=== PATIENT | female | born 1985 | race Hispanic/Latino ===

== ENCOUNTER 2016-08-08 08:03 | Emergency (ER) | payer MEDICAID, OTHER ==
[2016-08-08] MEDS ORDERED: GI COCKTAIL 50ML BTL(HYOSCYAMINE/MAALOX/LIDOCAINE VISCOUS)(1:3:1) As Ordered ONE (09:08)
[2016-08-08 09:10] LABS: BASO % 0.2 % (0.0-1.0); EOS # 0.1 K/mm3 (0.0-0.50); EOS % 1.4 % (0.0-3.0); LARGE UNSTAINED CELL # 0.1 K/mm3 (0.0-0.4); LARGE UNSTAINED CELL % 1.4 % (0.0-4.0); LYMPH # 1.1 K/mm3 (1.5-4.5); LYMPH % 12.7 % (24.0-44.0); MEAN CORPUSCULAR HEMOGLOBIN 23.8 pg (27.0-33.0); MEAN CORPUSCULAR HGB CONC 31.4 g/dl (32.0-36.5); MEAN CORPUSCULAR VOLUME 75.8 fl (80.0-96.0); MONO # 0.2 K/mm3 (0.0-0.8); MONO % 2.7 % (0.0-5.0); NEUTROPHILS # 7.3 K/mm3 (1.8-7.7); NEUTROPHILS % 81.6 % (36.0-66.0); PLATELET COUNT, AUTOMATED 312 k/mm3 (150-450); WHITE BLOOD COUNT 8.9 K/mm3 (4.0-10.0)
[2016-08-08 09:29] LABS: BLOOD UREA NITROGEN 8 MG/DL (7-18); CREATININE FOR GFR 0.69 MG/DL (0.55-1.02); GLUCOSE, FASTING 84 MG/DL (70-105)
[2016-08-08 09:30] LABS: ALBUMIN 3.7 GM/DL (3.2-5.2); ALBUMIN/GLOBULIN RATIO 0.95 (1.00-1.93); ALKALINE PHOSPHATASE 90 U/L (45-117); ALT/SGPT 15 U/L (12-78); AMYLASE 63 U/L (25-115); ANION GAP 9 MEQ/L (8-16); AST/SGOT 10 U/L (15-37); BILIRUBIN,DIRECT 0.2 MG/DL (0.0-0.2); BILIRUBIN,TOTAL 0.6 MG/DL (0.2-1.0); CALCIUM LEVEL 8.7 MG/DL (8.5-10.1); CARBON DIOXIDE LEVEL 23 MEQ/L (21-32); CHLORIDE LEVEL 110 MEQ/L (98-107); GLOMERULAR FILTRATION RATE > 60.0 (>60); POTASSIUM SERUM 3.8 MEQ/L (3.5-5.1); SODIUM LEVEL 142 MEQ/L (136-145); TOTAL PROTEIN 7.6 GM/DL (6.4-8.2)
--- NOTE | 2016-08-08 09:51 | REP ---
Supine KUB 08/08/2016. Indication: Constipation Comparison: Abdominal series 06/23/2011 Findings: Moderate diffuse stool is seen within the right and transverse colon, to the level of the splenic flexure. The left colon is under distended. There is small amount of stool in the rectosigmoid colon. Bones and soft tissues are within normal limits. There are no abnormal soft tissue calcifications. There is extraneous clothing artifact projected over the hips. Impression: Moderate retained colonic stool with some sparing in the left colon. Bowel gas pattern is otherwise nonspecific Signed by Rika Richardson MD 08/08/2016 09:42 A
--- NOTE | 2016-08-08 10:13 | EDDOCDS ---
Nurse's Notes [facility] Name: Deanna Cantu Age: 30 yrs Sex: Female : 1985 Arrival Date: 08/08/2016 Time: 08:03 Bed I1 / M1 Private MD: Diagnosis: Constipation Presentation: 08/08 08:20 Presenting complaint: Patient states: Upper abdominal pain since 9pm yesterday, no dwg vomiting. Risk factors: the patient reports no vaginal bleeding. Adult Sepsis Screening: The patient does not have new or worsening altered mentation. Patient's respiratory rate is less than 22. Systolic blood pressure is greater than 100. Patient has a qSOFA score of 0- Negative Sepsis Screen. Suicide/Homicide risk assessment- the patient denies having any suicidal and/or homicidal ideations and does not present with any other emotional, behavioral or mental health complaints. Status: Patient is not a senior manager creative services or dependent. Transition of care: patient was not received from another setting of care. 08:20 Acuity: TAVO Level 3 dwg 08:20 Method Of Arrival: Walkin/Carried/Asstd dwg Triage Assessment: 08:23 General: Appears in no apparent distress. Pain: Pain currently is 9 out of 10 on a pain dwg scale. Pt Declines HIV testing. 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 none - PMHx: none; - PSHx: none; - Social history: Smoking status: Patient states was never smoker of tobacco. No barriers to communication noted. - Family history: Not pertinent. - : The pt / caregiver states he / she is not on anticoagulants. Home medication list is obtained from the patient. - Exposure Risk Screening:: None identified. Screenin:57 Screening information is obtained from the patient. Primary language is Romanian. Fall jam1 risk: No risks identified. Assistance ADL's: requires no assistance with activities of daily living. Abuse/DV Screen: The patient / caregiver reports he/she is: not in a situation that causes fear, pain or injury. Nutritional screening: No deficits noted. Exposure Risk Screening: None identified. Advance Directives: Currently, there is no health care proxy. There is no active DNR order. There is no living will. There is no Power of Electromedical Equipment Repairer. Advance directive information has not previously been placed in an [facility] medical record. Further advance directive information. home support is adequate. Assessment: 09:50 Reassessment: Patient states abdominal discomfort not any better - tongue feels numb. kcs Texting.. General: Appears comfortable, well developed, well nourished, well groomed, Behavior is cooperative, pleasant. Neurological: Level of Consciousness is awake, alert. Respiratory: Airway is patent Respiratory effort is even, unlabored, Respiratory pattern is regular, symmetrical. GI: Abdomen is obese, Bowel sounds present X 4 quads. Abd is soft and non tender. Derm: Skin is intact, is healthy with good turgor, Skin is dry, Skin is brown. 10:08 Reassessment: Patient states feeling better. General: Appears comfortable, well kcs developed, well nourished, well groomed, Behavior is cooperative, pleasant. Neurological: Level of Consciousness is awake, alert. Respiratory: Airway is patent Respiratory effort is even, unlabored, Respiratory pattern is regular, symmetrical. GI: Denies nausea. Derm: Skin is intact, is healthy with good turgor, Skin is dry, Skin is brown. Vital Signs: 08:23 BP 124 / 80; Pulse 72; Resp 16; Temp 98.1(T); Pulse Ox 100% on R/A; Weight 81.65 kg; g Height 5 ft. 3 in. (160.02 cm); Pain 9/10; 09:58 BP 137 / 64; Pulse 71; Resp 18; Temp 98.6; Pulse Ox 100% ; Pain 6/10; jam1 08:23 Body Mass Index 31.89 (81.65 kg, 160.02 cm) [facility] Vitals: 08:23 Log In Time: August 08, 2016 at 08:02. [facility] ED Course: 08:04 Patient visited by Jl Leone. mm15 08:04 Patient moved to Waiting mm15 08:21 Triage Initiated dwg 08:25 Patient moved to I1 / M1 dwg 08:26 Des Bess PA-C is PHCP. ar2 08:26 Lee Parada MD is Attending Physician. ar2 08:27 Patient visited by Des Bess PA-C. ar2 08:57 Pt greeted and oriented to ED. Patient advised of names of staff involved in care, jam1 location of call rivas, wait times and NPO status. Patient has correct armband on for positive identification. Bed in low position. Call light in reach. Side rails up X 1. Door closed. 09:02 Liver Profile Sent. kcs 09:02 Lipase Sent. kcs 09:02 CBC with Diff Sent. kcs 09:02 Basic Metabolic Profile Sent. kcs 09:02 Amylase Sent. kcs 09:09 Patient moved to Radiology dsf 09:20 Patient moved to I1 / M1 gg 09:21 [facility] Payment Agreement was scanned into [employer] and attached to record. mm15 09:52 Patient visited by Portia Patel RN. kcs 09:55 Patient name changed from Deanna\S\\S\Cantu\S\ to Deanna\S\L\S\Cantu. EDMS 10:08 The patient / caregiver is instructed regarding the plan of care and ED course. kcs 10:08 No IV's were initiated during this patient's visit. No procedures done that require kcs assistance. Administered Medications: 09:09 Drug: GI Cocktail - (Alum-Mag Hydroxide-Simeth Suspension 225 mg-200 mg-25 mg/5 mL 30 dsf ml, Lidocaine Liquid 2 % 10 ml, Hyoscyamine Liquid 10 ml) Route: PO; Point of Care Testing: Urine : 08:56 hCG Reading: Negative; jam1 Ranges: Order Results: Lab Order: Amylase; SPEC'M 08/08/16 09:00 Test: AMYLASE; Value: 63; Range: 25-115; Units: U/L; Status: F Lab Order: Basic Metabolic Profile; SPEC'M 08/08/16 09:00 Test: GLUCOSE, FASTING; Value: 84; Range: 70-105; Units: MG/DL; Status: F Test: BLOOD UREA NITROGEN; Value: 8; Range: 7-18; Units: MG/DL; Status: F Test: CREATININE FOR GFR; Value: 0.69; Range: 0.55-1.02; Units: MG/DL; Status: F Test: GLOMERULAR FILTRATION RATE; Value: > 60.0; Range: >60; Status: F Test: SODIUM LEVEL; Value: 142; Range: 136-145; Units: MEQ/L; Status: F Test: POTASSIUM SERUM; Value: 3.8; Range: 3.5-5.1; Units: MEQ/L; Status: F Test: CHLORIDE LEVEL; Value: 110; Range: 98-107; Abnormal: Above high normal; Units: MEQ/L; Status: F Test: CARBON DIOXIDE LEVEL; Value: 23; Range: 21-32; Units: MEQ/L; Status: F Test: ANION GAP; Value: 9; Range: 8-16; Units: MEQ/L; Status: F Test: CALCIUM LEVEL; Value: 8.7; Range: 8.5-10.1; Units: MG/DL; Status: F Test Note: ; Units are mL/min/1.73 m2 Chronic Kidney Disease Staging per NKF: Stage I & II GFR >=60 Normal to Mildly Decreased Stage III GFR 30-59 Moderately Decreased Stage IV GFR 15-29 Severely Decreased Stage V GFR <15 Very Little GFR Left ESRD GFR <15 on DRAWING INSTRUCTOR Lab Order: CBC with Diff; SPEC'M 08/08/16 09:00 Test: WHITE BLOOD COUNT; Value: 8.9; Range: 4.0-10.0; Units: K/mm3; Status: F Test: RED BLOOD COUNT; Value: 4.56; Range: 4.00-5.40; Units: M/mm3; Status: F Test: HEMOGLOBIN; Value: 10.9; Range: 12.0-16.0; Abnormal: Below low normal; Units: g/dl; Status: F Test: HEMATOCRIT; Value: 34.6; Range: 36.0-47.0; Abnormal: Below low normal; Units: %; Status: F Test: MEAN CORPUSCULAR VOLUME; Value: 75.8; Range: 80.0-96.0; Abnormal: Below low normal; Units: fl; Status: F Test: MEAN CORPUSCULAR HEMOGLOBIN; Value: 23.8; Range: 27.0-33.0; Abnormal: Below low normal; Units: pg; Status: F Test: MEAN CORPUSCULAR HGB CONC; Value: 31.4; Range: 32.0-36.5; Abnormal: Below low normal; Units: g/dl; Status: F Test: RED CELL DISTRIBUTION WIDTH; Value: 16.0; Range: 11.5-14.5; Abnormal: Above high normal; Units: %; Status: F Test: PLATELET COUNT, AUTOMATED; Value: 312; Range: 150-450; Units: k/mm3; Status: F Test: NEUTROPHILS %; Value: 81.6; Range: 36.0-66.0; Abnormal: Above high normal; Units: %; Status: F Test: LYMPH %; Value: 12.7; Range: 24.0-44.0; Abnormal: Below low normal; Units: %; Status: F Test: MONO %; Value: 2.7; Range: 0.0-5.0; Units: %; Status: F Test: EOS %; Value: 1.4; Range: 0.0-3.0; Units: %; Status: F Test: BASO %; Value: 0.2; Range: 0.0-1.0; Units: %; Status: F Test: LARGE UNSTAINED CELL %; Value: 1.4; Range: 0.0-4.0; Units: %; Status: F Test: NEUTROPHILS #; Value: 7.3; Range: 1.8-7.7; Units: K/mm3; Status: F Test: LYMPH #; Value: 1.1; Range: 1.5-4.5; Abnormal: Below low normal; Units: K/mm3; Status: F Test: MONO #; Value: 0.2; Range: 0.0-0.8; Units: K/mm3; Status: F Test: EOS #; Value: 0.1; Range: 0.0-0.50; Units: K/mm3; Status: F Test: BASO #; Value: 0.0; Range: 0.0-0.2; Units: K/mm3; Status: F Test: LARGE UNSTAINED CELL #; Value: 0.1; Range: 0.0-0.4; Units: K/mm3; Status: F Lab Order: Lipase; SPEC'M 08/08/16 09:00 Test: LIPASE; Value: 168; Range: 73-393; Units: U/L; Status: F Lab Order: Liver Profile; SPEC'M 08/08/16 09:00 Test: AST/SGOT; Value: 10; Range: 15-37; Abnormal: Below low normal; Units: U/L; Status: F Test: ALT/SGPT; Value: 15; Range: 12-78; Units: U/L; Status: F Test: ALKALINE PHOSPHATASE; Value: 90; Range: 45-117; Units: U/L; Status: F Test: BILIRUBIN,TOTAL; Value: 0.6; Range: 0.2-1.0; Units: MG/DL; Status: F Test: BILIRUBIN,DIRECT; Value: 0.2; Range: 0.0-0.2; Units: MG/DL; Status: F Test: TOTAL PROTEIN; Value: 7.6; Range: 6.4-8.2; Units: GM/DL; Status: F Test: ALBUMIN; Value: 3.7; Range: 3.2-5.2; Units: GM/DL; Status: F Test: ALBUMIN/GLOBULIN RATIO; Value: 0.95; Range: 1.00-1.93; Abnormal: Below low normal; Status: F Outcome: 09:57 Discharge ordered by Provider. ar2 10:08 Discharge Assessment: Patient awake, alert and oriented x 3. No cognitive and/or kcs functional deficits noted. Patient verbalized understanding of disposition instructions. Patient awake and alert. patient administered narcotics - no. The following High Risk Discharge criteria are identified: None. Discharged to home ambulatory. Condition: stable. No special radiology studies were completed. Property sent home with patient. 10:13 Patient left the ED. mike Signatures: Dispatcher [employer] Portia Monahan, RN Adelfo Blake RN Keila Peraza, [facility] Mekhi Boswell Aaron, PA-C PAAaron veras2 Dulce Veras RN RN Jl Phelps mm15 Corrections: (The following items were deleted from the chart) :57 09:50 GI: Abdomen is obese, Bowel sounds mike mckeon MTDAlecia
--- NOTE | 2016-08-08 10:13 | EDDOCDS ---
Physician Documentation [facility] Name: Deanna Cantu Age: 30 yrs Sex: Female : 1985 Arrival Date: 08/08/2016 Time: 08:03 Bed I1 / M1 Private MD: Disposition: 08/08/16 09:57 Discharged to Home/Self Care. Impression: Constipation. - Condition is Stable. - Discharge Instructions: Constipation, Adult, High-Fiber Diet. - Prescriptions for Magnesium Citrate Oral Solution - take 1 bottle by ORAL route once daily; 1 bottle. Miralax 17 gram/dose - take 17 gram by ORAL route once daily As needed dilute in 8 ounces of water or juice; 1 bottle. - Medication Reconciliation, Local Pharmacy Hours form. - Follow up: Private Physician; When: As needed; Reason: Recheck today's complaints, Continuance of care. Follow up: Emergency Department; When: As needed; Reason: Fever > 102F, Worsening of conditions. - Problem is new. - Symptoms are unchanged. - Notes: take magnesium citrate today for bowel movement. then use miralax once daily as needed to avoid constipation Historical: - Allergies: no known allergies; - Home Meds: 1. none - PMHx: none; - PSHx: none; - Social history: Smoking status: Patient states was never smoker of tobacco. No barriers to communication noted. - Family history: Not pertinent. - : The pt / caregiver states he / she is not on anticoagulants. Home medication list is obtained from the patient. - Exposure Risk Screening:: None identified. 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 3 in. (160.02 cm); Pain 9/10; 09:58 BP 137 / 64; Pulse 71; Resp 18; Temp 98.6; Pulse Ox 100% ; Pain 6/10; jam1 08:23 Body Mass Index 31.89 (81.65 kg, 160.02 cm) dwg MDM: 08:38 UCG by Nursing ordered. ar2 08:39 Amylase Ordered. EDMS 08:39 Basic Metabolic Profile Ordered. EDMS 08:39 CBC with Diff Ordered. EDMS 08:39 Lipase Ordered. EDMS 08:39 Liver Profile Ordered. EDMS 09:05 GI Cocktail - (Alum-Mag Hydroxide-Simeth 30 ml, Lidocaine 10 ml, Hyoscyamine 10 ml) PO ar2 once; Pre-mixed 50mL unit dose ordered. 09:05 KUB Ordered. EDMS 09:08 Financial registration complete. mm15 09:21 [facility] Payment Agreement was scanned into [employer] and attached to record. mm15 09:50 Basic Metabolic Profile Reviewed. ar2 09:50 CBC with Diff Reviewed. ar2 09:50 Liver Profile Reviewed. ar2 09:50 Amylase Reviewed. ar2 09:50 Lipase Reviewed. ar2 Point of Care Testing: Urine : 08:56 hCG Reading: Negative; jam1 Ranges: Administered Medications: 09:09 Drug: GI Cocktail - (Alum-Mag Hydroxide-Simeth Suspension 225 mg-200 mg-25 mg/5 mL 30 dsf ml, Lidocaine Liquid 2 % 10 ml, Hyoscyamine Liquid 10 ml) Route: PO; Signatures: Dispatcher [employer] EDMS Portia Patel, RN RN kcs Adelfo Arce RN RN dwg Robertshaw, Aaron, PA-C PAAaron ar2 lJ Leone mm15 Dulce Veras RN The chart was reviewed and I authenticate all verbal orders and agree with the evaluation and treatment provided.Attachments: 09:21 [facility] Payment Agreement mm15 MTDD
--- NOTE | 2016-08-10 11:13 | EDDOCDS ---
Nurse's Notes [facility] Name: Deanna Gutierrez Age: 30 yrs Sex: Female : 1985 Arrival Date: 08/08/2016 Time: 08:03 Bed I1 / M1 Private MD: Diagnosis: Constipation Presentation: 08/08 08:20 Presenting complaint: Patient states: Upper abdominal pain since 9pm yesterday, no dwg vomiting. Risk factors: the patient reports no vaginal bleeding. Adult Sepsis Screening: The patient does not have new or worsening altered mentation. Patient's respiratory rate is less than 22. Systolic blood pressure is greater than 100. Patient has a qSOFA score of 0- Negative Sepsis Screen. Suicide/Homicide risk assessment- the patient denies having any suicidal and/or homicidal ideations and does not present with any other emotional, behavioral or mental health complaints. Status: Patient is not a patient services technician or dependent. Transition of care: patient was not received from another setting of care. 08:20 Acuity: TAVO Level 3 dwg 08:20 Method Of Arrival: Walkin/Carried/Asstd dwg Triage Assessment: 08:23 General: Appears in no apparent distress. Pain: Pain currently is 9 out of 10 on a pain dwg scale. Pt Declines HIV testing. 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 none - PMHx: none; - PSHx: none; - Social history: Smoking status: Patient states was never smoker of tobacco. No barriers to communication noted. - Family history: Not pertinent. - : The pt / caregiver states he / she is not on anticoagulants. Home medication list is obtained from the patient. - Exposure Risk Screening:: None identified. Screenin:57 Screening information is obtained from the patient. Primary language is Tongan. Fall jam1 risk: No risks identified. Assistance ADL's: requires no assistance with activities of daily living. Abuse/DV Screen: The patient / caregiver reports he/she is: not in a situation that causes fear, pain or injury. Nutritional screening: No deficits noted. Exposure Risk Screening: None identified. Advance Directives: Currently, there is no health care proxy. There is no active DNR order. There is no living will. There is no Power of Wood Type Finisher. Advance directive information has not previously been placed in an [facility] medical record. Further advance directive information. home support is adequate. Assessment: 09:50 Reassessment: Patient states abdominal discomfort not any better - tongue feels numb. kcs Texting.. General: Appears comfortable, well developed, well nourished, well groomed, Behavior is cooperative, pleasant. Neurological: Level of Consciousness is awake, alert. Respiratory: Airway is patent Respiratory effort is even, unlabored, Respiratory pattern is regular, symmetrical. GI: Abdomen is obese, Bowel sounds present X 4 quads. Abd is soft and non tender. Derm: Skin is intact, is healthy with good turgor, Skin is dry, Skin is brown. 10:08 Reassessment: Patient states feeling better. General: Appears comfortable, well kcs developed, well nourished, well groomed, Behavior is cooperative, pleasant. Neurological: Level of Consciousness is awake, alert. Respiratory: Airway is patent Respiratory effort is even, unlabored, Respiratory pattern is regular, symmetrical. GI: Denies nausea. Derm: Skin is intact, is healthy with good turgor, Skin is dry, Skin is brown. Vital Signs: 08:23 BP 124 / 80; Pulse 72; Resp 16; Temp 98.1(T); Pulse Ox 100% on R/A; Weight 81.65 kg; g Height 5 ft. 3 in. (160.02 cm); Pain 9/10; 09:58 BP 137 / 64; Pulse 71; Resp 18; Temp 98.6; Pulse Ox 100% ; Pain 6/10; jam1 08:23 Body Mass Index 31.89 (81.65 kg, 160.02 cm) [facility] Vitals: 08:23 Log In Time: August 08, 2016 at 08:02. [facility] ED Course: 08:04 Patient visited by Jl Leone. mm15 08:04 Patient moved to Waiting mm15 08:21 Triage Initiated dwg 08:25 Patient moved to I1 / M1 dwg 08:26 Des Bess PA-C is PHCP. ar2 08:26 Lee Parada MD is Attending Physician. ar2 08:27 Patient visited by Des Bess PA-C. ar2 08:57 Pt greeted and oriented to ED. Patient advised of names of staff involved in care, jam1 location of call rivas, wait times and NPO status. Patient has correct armband on for positive identification. Bed in low position. Call light in reach. Side rails up X 1. Door closed. 09:02 Liver Profile Sent. kcs 09:02 Lipase Sent. kcs 09:02 CBC with Diff Sent. kcs 09:02 Basic Metabolic Profile Sent. kcs 09:02 Amylase Sent. kcs 09:09 Patient moved to Radiology dsf 09:20 Patient moved to I1 / M1 gg 09:21 [facility] Payment Agreement was scanned into GLO and attached to record. mm15 09:52 Patient visited by Portia Patel RN. kcs 09:55 Patient name changed from Deanna\S\\S\Cantu\S\ to Deanna\S\L\S\Cantu. EDMS 10:08 The patient / caregiver is instructed regarding the plan of care and ED course. kcs 10:08 No IV's were initiated during this patient's visit. No procedures done that require kcs assistance. 10:18 KUB Returned. EDMS 12:54 T-Sheet-- Draft Copy was scanned into GLO and attached to record. gb 12:55 Radiology Report was scanned into GLO and attached to record. gb 08/09 12:09 Patient name changed from Deanna\S\L\S\Cantu\S\ to Deanna\S\L\S\Pachecobenabe. EDMS Administered Medications: 08/08 09:09 Drug: GI Cocktail - (Alum-Mag Hydroxide-Simeth Suspension 225 mg-200 mg-25 mg/5 mL 30 dsf ml, Lidocaine Liquid 2 % 10 ml, Hyoscyamine Liquid 10 ml) Route: PO; Point of Care Testing: Urine : 08:56 hCG Reading: Negative; jam1 Ranges: Order Results: Lab Order: Amylase; SPEC'M 08/08/16 09:00 Test: AMYLASE; Value: 63; Range: 25-115; Units: U/L; Status: F Lab Order: Basic Metabolic Profile; SPEC'M 08/08/16 09:00 Test: GLUCOSE, FASTING; Value: 84; Range: 70-105; Units: MG/DL; Status: F Test: BLOOD UREA NITROGEN; Value: 8; Range: 7-18; Units: MG/DL; Status: F Test: CREATININE FOR GFR; Value: 0.69; Range: 0.55-1.02; Units: MG/DL; Status: F Test: GLOMERULAR FILTRATION RATE; Value: > 60.0; Range: >60; Status: F Test: SODIUM LEVEL; Value: 142; Range: 136-145; Units: MEQ/L; Status: F Test: POTASSIUM SERUM; Value: 3.8; Range: 3.5-5.1; Units: MEQ/L; Status: F Test: CHLORIDE LEVEL; Value: 110; Range: 98-107; Abnormal: Above high normal; Units: MEQ/L; Status: F Test: CARBON DIOXIDE LEVEL; Value: 23; Range: 21-32; Units: MEQ/L; Status: F Test: ANION GAP; Value: 9; Range: 8-16; Units: MEQ/L; Status: F Test: CALCIUM LEVEL; Value: 8.7; Range: 8.5-10.1; Units: MG/DL; Status: F Test Note: ; Units are mL/min/1.73 m2 Chronic Kidney Disease Staging per NKF: Stage I & II GFR >=60 Normal to Mildly Decreased Stage III GFR 30-59 Moderately Decreased Stage IV GFR 15-29 Severely Decreased Stage V GFR <15 Very Little GFR Left ESRD GFR <15 on AGRICULTURIST Lab Order: CBC with Diff; SPEC'M 08/08/16 09:00 Test: WHITE BLOOD COUNT; Value: 8.9; Range: 4.0-10.0; Units: K/mm3; Status: F Test: RED BLOOD COUNT; Value: 4.56; Range: 4.00-5.40; Units: M/mm3; Status: F Test: HEMOGLOBIN; Value: 10.9; Range: 12.0-16.0; Abnormal: Below low normal; Units: g/dl; Status: F Test: HEMATOCRIT; Value: 34.6; Range: 36.0-47.0; Abnormal: Below low normal; Units: %; Status: F Test: MEAN CORPUSCULAR VOLUME; Value: 75.8; Range: 80.0-96.0; Abnormal: Below low normal; Units: fl; Status: F Test: MEAN CORPUSCULAR HEMOGLOBIN; Value: 23.8; Range: 27.0-33.0; Abnormal: Below low normal; Units: pg; Status: F Test: MEAN CORPUSCULAR HGB CONC; Value: 31.4; Range: 32.0-36.5; Abnormal: Below low normal; Units: g/dl; Status: F Test: RED CELL DISTRIBUTION WIDTH; Value: 16.0; Range: 11.5-14.5; Abnormal: Above high normal; Units: %; Status: F Test: PLATELET COUNT, AUTOMATED; Value: 312; Range: 150-450; Units: k/mm3; Status: F Test: NEUTROPHILS %; Value: 81.6; Range: 36.0-66.0; Abnormal: Above high normal; Units: %; Status: F Test: LYMPH %; Value: 12.7; Range: 24.0-44.0; Abnormal: Below low normal; Units: %; Status: F Test: MONO %; Value: 2.7; Range: 0.0-5.0; Units: %; Status: F Test: EOS %; Value: 1.4; Range: 0.0-3.0; Units: %; Status: F Test: BASO %; Value: 0.2; Range: 0.0-1.0; Units: %; Status: F Test: LARGE UNSTAINED CELL %; Value: 1.4; Range: 0.0-4.0; Units: %; Status: F Test: NEUTROPHILS #; Value: 7.3; Range: 1.8-7.7; Units: K/mm3; Status: F Test: LYMPH #; Value: 1.1; Range: 1.5-4.5; Abnormal: Below low normal; Units: K/mm3; Status: F Test: MONO #; Value: 0.2; Range: 0.0-0.8; Units: K/mm3; Status: F Test: EOS #; Value: 0.1; Range: 0.0-0.50; Units: K/mm3; Status: F Test: BASO #; Value: 0.0; Range: 0.0-0.2; Units: K/mm3; Status: F Test: LARGE UNSTAINED CELL #; Value: 0.1; Range: 0.0-0.4; Units: K/mm3; Status: F Lab Order: Lipase; SPEC'M 08/08/16 09:00 Test: LIPASE; Value: 168; Range: 73-393; Units: U/L; Status: F Lab Order: Liver Profile; SPEC'M 08/08/16 09:00 Test: AST/SGOT; Value: 10; Range: 15-37; Abnormal: Below low normal; Units: U/L; Status: F Test: ALT/SGPT; Value: 15; Range: 12-78; Units: U/L; Status: F Test: ALKALINE PHOSPHATASE; Value: 90; Range: 45-117; Units: U/L; Status: F Test: BILIRUBIN,TOTAL; Value: 0.6; Range: 0.2-1.0; Units: MG/DL; Status: F Test: BILIRUBIN,DIRECT; Value: 0.2; Range: 0.0-0.2; Units: MG/DL; Status: F Test: TOTAL PROTEIN; Value: 7.6; Range: 6.4-8.2; Units: GM/DL; Status: F Test: ALBUMIN; Value: 3.7; Range: 3.2-5.2; Units: GM/DL; Status: F Test: ALBUMIN/GLOBULIN RATIO; Value: 0.95; Range: 1.00-1.93; Abnormal: Below low normal; Status: F Radiology Order: KUB Test: KUB REASON FOR EXAMINATION: constipation; Supine KUB 08/08/2016.; ; Indication: Constipation; ; Comparison: Abdominal series 06/23/2011; ; Findings: Moderate diffuse stool is seen within the right and transverse colon,; to the level of the splenic flexure. The left colon is under distended. There; is small amount of stool in the rectosigmoid colon. Bones and soft tissues are; within normal limits. There are no abnormal soft tissue calcifications. There is; extraneous clothing artifact projected over the hips.; ; Impression:; ; Moderate retained colonic stool with some sparing in the left colon. Bowel gas; pattern is otherwise nonspecific; ; ; Signed by; Rika Richardson MD 08/08/2016 09:42 A; Outcome: 09:57 Discharge ordered by Provider. ar2 10:08 Discharge Assessment: Patient awake, alert and oriented x 3. No cognitive and/or kcs functional deficits noted. Patient verbalized understanding of disposition instructions. Patient awake and alert. patient administered narcotics - no. The following High Risk Discharge criteria are identified: None. Discharged to home ambulatory. Condition: stable. No special radiology studies were completed. Property sent home with patient. 10:13 Patient left the ED. mike Signatures: Dispatcher [employer] EDPortia Riley RN RN kcs Greene, Daniel, RN RN dwg Murphy, Jane, PERSONAL INJURY LAW SPECIALIST PERSONAL INJURY LAW SPECIALIST jam1 Mary Bullock, Reg Reg gb Mekhi Hernandez Aaron, PA-C PA-C ar2 Dulce Veras RN RN Jl Phelps mm15 Corrections: (The following items were deleted from the chart) 09:57 09:50 GI: Abdomen is obese, Bowel sounds mike mckeon Chart Complete MTDD
--- NOTE | 2016-08-10 11:13 | EDDOCDS ---
Physician Documentation [facility] Name: Deanna Gutierrez Age: 30 yrs Sex: Female : 1985 Arrival Date: 08/08/2016 Time: 08:03 Bed I1 / M1 Private MD: Disposition: 08/08/16 09:57 Discharged to Home/Self Care. Impression: Constipation. - Condition is Stable. - Discharge Instructions: Constipation, Adult, High-Fiber Diet. - Prescriptions for Magnesium Citrate Oral Solution - take 1 bottle by ORAL route once daily; 1 bottle. Miralax 17 gram/dose - take 17 gram by ORAL route once daily As needed dilute in 8 ounces of water or juice; 1 bottle. - Medication Reconciliation, Local Pharmacy Hours form. - Follow up: Private Physician; When: As needed; Reason: Recheck today's complaints, Continuance of care. Follow up: Emergency Department; When: As needed; Reason: Fever > 102F, Worsening of conditions. - Problem is new. - Symptoms are unchanged. - Notes: take magnesium citrate today for bowel movement. then use miralax once daily as needed to avoid constipation Historical: - Allergies: no known allergies; - Home Meds: 1. none - PMHx: none; - PSHx: none; - Social history: Smoking status: Patient states was never smoker of tobacco. No barriers to communication noted. - Family history: Not pertinent. - : The pt / caregiver states he / she is not on anticoagulants. Home medication list is obtained from the patient. - Exposure Risk Screening:: None identified. 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 3 in. (160.02 cm); Pain 9/10; 09:58 BP 137 / 64; Pulse 71; Resp 18; Temp 98.6; Pulse Ox 100% ; Pain 6/10; jam1 08:23 Body Mass Index 31.89 (81.65 kg, 160.02 cm) dwg MDM: 08:38 UCG by Nursing ordered. ar2 08:39 Amylase Ordered. EDMS 08:39 Basic Metabolic Profile Ordered. EDMS 08:39 CBC with Diff Ordered. EDMS 08:39 Lipase Ordered. EDMS 08:39 Liver Profile Ordered. EDMS 09:05 GI Cocktail - (Alum-Mag Hydroxide-Simeth 30 ml, Lidocaine 10 ml, Hyoscyamine 10 ml) PO ar2 once; Pre-mixed 50mL unit dose ordered. 09:05 KUB Ordered. EDMS 09:08 Financial registration complete. mm15 09:21 [facility] Payment Agreement was scanned into [employer] and attached to record. mm15 09:50 Basic Metabolic Profile Reviewed. ar2 09:50 CBC with Diff Reviewed. ar2 09:50 Liver Profile Reviewed. ar2 09:50 Amylase Reviewed. ar2 09:50 Lipase Reviewed. ar2 12:54 T-Sheet-- Draft Copy was scanned into [employer] and attached to record. gb 12:55 Radiology Report was scanned into [employer] and attached to record. gb Point of Care Testing: Urine : 08:56 hCG Reading: Negative; jam1 Ranges: Administered Medications: 09:09 Drug: GI Cocktail - (Alum-Mag Hydroxide-Simeth Suspension 225 mg-200 mg-25 mg/5 mL 30 dsf ml, Lidocaine Liquid 2 % 10 ml, Hyoscyamine Liquid 10 ml) Route: PO; Signatures: Dispatcher [employer] Portia Monahan, RN RN Adelfo Shaw RN RN dwg Mary Bullock, Guillaume Reg Des Delcid, JIA PAAaron ar2 Jl Leone mm15 Dulce Veras RN dsf The chart was reviewed and I authenticate all verbal orders and agree with the evaluation and treatment provided.Attachments: : [facility] Payment Agreement mm15 12:54 T-Sheet-- Draft Copy gb Chart Complete MTDD
--- NOTE | 2016-08-10 11:13 | EDDOCDS ---
Physician Documentation [facility] Name: Deanna Gutierrez Age: 30 yrs Sex: Female : 1985 Arrival Date: 08/08/2016 Time: 08:03 Bed I1 / M1 Private MD: Disposition: 08/08/16 09:57 Discharged to Home/Self Care. Impression: Constipation. - Condition is Stable. - Discharge Instructions: Constipation, Adult, High-Fiber Diet. - Prescriptions for Magnesium Citrate Oral Solution - take 1 bottle by ORAL route once daily; 1 bottle. Miralax 17 gram/dose - take 17 gram by ORAL route once daily As needed dilute in 8 ounces of water or juice; 1 bottle. - Medication Reconciliation, Local Pharmacy Hours form. - Follow up: Private Physician; When: As needed; Reason: Recheck today's complaints, Continuance of care. Follow up: Emergency Department; When: As needed; Reason: Fever > 102F, Worsening of conditions. - Problem is new. - Symptoms are unchanged. - Notes: take magnesium citrate today for bowel movement. then use miralax once daily as needed to avoid constipation Historical: - Allergies: no known allergies; - Home Meds: 1. none - PMHx: none; - PSHx: none; - Social history: Smoking status: Patient states was never smoker of tobacco. No barriers to communication noted. - Family history: Not pertinent. - : The pt / caregiver states he / she is not on anticoagulants. Home medication list is obtained from the patient. - Exposure Risk Screening:: None identified. 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 3 in. (160.02 cm); Pain 9/10; 09:58 BP 137 / 64; Pulse 71; Resp 18; Temp 98.6; Pulse Ox 100% ; Pain 6/10; jam1 08:23 Body Mass Index 31.89 (81.65 kg, 160.02 cm) dwg MDM: 08:38 UCG by Nursing ordered. ar2 08:39 Amylase Ordered. EDMS 08:39 Basic Metabolic Profile Ordered. EDMS 08:39 CBC with Diff Ordered. EDMS 08:39 Lipase Ordered. EDMS 08:39 Liver Profile Ordered. EDMS 09:05 GI Cocktail - (Alum-Mag Hydroxide-Simeth 30 ml, Lidocaine 10 ml, Hyoscyamine 10 ml) PO ar2 once; Pre-mixed 50mL unit dose ordered. 09:05 KUB Ordered. EDMS 09:08 Financial registration complete. mm15 09:21 [facility] Payment Agreement was scanned into [employer] and attached to record. mm15 09:50 Basic Metabolic Profile Reviewed. ar2 09:50 CBC with Diff Reviewed. ar2 09:50 Liver Profile Reviewed. ar2 09:50 Amylase Reviewed. ar2 09:50 Lipase Reviewed. ar2 12:54 T-Sheet-- Draft Copy was scanned into [employer] and attached to record. gb 12:55 Radiology Report was scanned into [employer] and attached to record. gb Point of Care Testing: Urine : 08:56 hCG Reading: Negative; jam1 Ranges: Administered Medications: 09:09 Drug: GI Cocktail - (Alum-Mag Hydroxide-Simeth Suspension 225 mg-200 mg-25 mg/5 mL 30 dsf ml, Lidocaine Liquid 2 % 10 ml, Hyoscyamine Liquid 10 ml) Route: PO; Signatures: Dispatcher [employer] Portia Monahan, RN RN Adelfo Shaw RN RN dwg Mary Bullock, Guillaume Reg Des Delcid, JIA PAAaron ar2 Jl Leone mm15 Dulce Veras RN dsf The chart was reviewed and I authenticate all verbal orders and agree with the evaluation and treatment provided.Attachments: : [facility] Payment Agreement mm15 12:54 T-Sheet-- Draft Copy gb Chart Complete MTDD
== END 2016-08-08 10:13 | disposition home or self-care (01) ==
LOC: M ED 08:03
DX: K59.00 Constipation, unspecified (principal)